=== PATIENT | female | born 1975 ===

== ENCOUNTER 2021-05-05 13:23 | Emergency (ER) | payer SELFPAY ==
[~2021-05-05] VITALS: Ht 157.5 cm; Wt 60.9 kg
[2021-05-05 13:29] VITALS: Ht 157.5 cm; Wt 60.9 kg
[2021-05-05] MEDS ORDERED: ADDERAL (13:29)
[2021-05-05] MEDS ORDERED: KLONOPIN (13:30)
[2021-05-05 14:00] LABS: BASOPHILS 0.7 % (0-2); EOSINOPHILS 0.8 % (0-7); LYMPHOCYTES 12.6 % (15-50); MCH 33.9 pg (26.0-34.0); MCHC 34.7 g/dL (31.0-37.0); MCV 97.8 fL (80.0-100.0); MEAN PLATELET VOLUME 9.3 fL (7.4-10.4); MONOCYTES 6.5 % (2-11); NEUTROPHILS 79.4 % (40-80); PLATELET COUNT 167 10x3/uL (130-400); RBC 5.01 10x6/uL (4.00-5.40); RDW 12.4 % (11.5-14.5); WBC 9.4 10x3/uL (4.8-10.8)
[2021-05-05 14:09] LABS: CALC OSMOLALITY 273 mosm/kg (275-300); CARBON DIOXIDE 27.8 mmol/L (21.0-32.0); CHLORIDE - SERUM 100 mmol/L (98-107); CREATININE - SERUM 0.6 mg/dL (0.6-1.3); GLUCOSE 109 mg/dL (74-106); SODIUM 138 mmol/L (136-145); UREA NITROGEN 5 mg/dL (7-18); eGFR NON AFRICAN AMERICAN > 90 mL/min (90-120)
[2021-05-05 14:17] LABS: ALBUMIN 4.5 g/dL (3.4-5.0); ALKALINE PHOSPHATASE 77 U/L (30-120); ALT (SGPT) 23 U/L (10-68); BILIRUBIN - TOTAL 0.55 mg/dL (0.2-1.3); PROTEIN - SERUM 8.2 g/dL (6.4-8.2)
[2021-05-05 15:18] VITALS: BP 121/72
== END 2021-05-05 15:55 | disposition home or self-care (01) ==
LOC: D.ER 13:23
PROVIDERS: Family Medicine
DX: I10 Essential (primary) hypertension (principal)